=== PATIENT | female | born 1960 | race Caucasian/White ===

== ENCOUNTER 2019-03-18 18:18 | Emergency (ER) | payer BC ==
[2019-03-18] MEDS ORDERED: TETANUS & DIPHTHERIA TOX,ADULT 0.5 ML VIAL ONE (18:46)
[2019-03-18] MEDS ORDERED: LIDOCAINE 1% MPF 5 ML VIAL ONE (18:46)
--- NOTE | 2019-03-18 19:33 | ER ---
Nurse's Notes [facility] Name: Shasha Hickman Age: 58 yrs Sex: Female : 1960 Arrival Date: 03/18/2019 Time: 18:21 Bed 25 Private MD: Diagnosis: Laceration without foreign body of finger without damage to nail-left middle Presentation: 03/18 18:43 Presenting complaint: Patient states: i sustained laceration in my left middle finger mg2 while picking up a can in the trash. approx. 1 inch long. Transition of care: patient was not received from another setting of care. Onset of symptoms was March 18, 2019 at 16:00. Risk Assessment: Do you want to hurt yourself or someone else? Patient reports no desire to harm self or others. Initial Sepsis Screen: Does the patient meet any 2 criteria? No. Patient's initial sepsis screen is negative. Does the patient have a suspected source of infection? No. Patient's initial sepsis screen is negative. Care prior to arrival: None. 18:43 Method Of Arrival: Ambulatory mg2 18:43 Acuity: MARY 4 mg2 Historical: - Allergies: 18:50 No Known Allergies; mg2 - Home Meds: 18:50 None [Active]; mg2 - PMHx: 18:50 None; mg2 - PSHx: 18:50 None; mg2 - Immunization history:: Flu vaccine status is unknown. - Social history:: Smoking status: unknown. - Ebola Screening: : No symptoms or risks identified at this time. Screenin:54 Abuse screen: Denies threats or abuse. Denies injuries from another. Nutritional mg2 screening: No deficits noted. Tuberculosis screening: No symptoms or risk factors identified. Fall Risk None identified. Assessment: 18:53 General: Appears comfortable, Behavior is calm, cooperative. Pain: Complains of pain in mg2 left middle finger. Derm: Wound noted left middle finger. Vital Signs: 18:49 BP 138 / 83; Pulse 75; Resp 18; Temp 98.5; Pulse Ox 100% on R/A; Weight 54.43 kg; mg2 Height 4 ft. 10 in. (147.32 cm); Pain 4/10; 19:45 BP 123 / 78; Pulse 84; Resp 18; Temp 98; Pulse Ox 100% on R/A; mg2 18:49 Body Mass Index 25.08 (54.43 kg, 147.32 cm) mg2 ED Course: 18:21 Patient arrived in ED. mr 18:24 Silvano Ring PA is PHCP. cp 18:24 Kale Duff MD is Attending Physician. cp 18:43 Oren Cordero, RN is Primary Nurse. mg2 18:45 Triage completed. mg2 18:50 Arm band placed on. mg2 18:54 Patient has correct armband on for positive identification. mg2 18:54 Patient did not have IV access during this emergency room visit. mg2 19:43 Assist provider with laceration repair on left middle finger that was 2.5 cm. or less mg2 using sutures. Set up tray. Dressed with Neosporin, Patient tolerated well. done by JUSTIN Santiago under supervision of SHEY Peter. Administered Medications: 18:51 Drug: Tetanus-Diphtheria Toxoid Adult 0.5 ml {Lay Ups Assembler: [employer]. Exp: mg2 10/30/2020. Lot #: [id number]. } Route: IM; Site: right deltoid; 19:45 Follow up: Response: No adverse reaction mg2 18:51 Drug: Lidocaine (1 %) 5 ml {Note: by bthe provider.} Volume: 5 ml; Route: Infiltration; mg2 19:44 Follow up: Response: No adverse reaction mg2 Outcome: 19:32 Discharge ordered by . cp 19:44 Discharged to home ambulatory. mg2 19:44 Condition: stable 19:44 Discharge instructions given to patient, Instructed on discharge instructions, follow up and referral plans. wound care, Demonstrated understanding of instructions, follow-up care, wound care. 19:45 Patient left the ED. mg2 Signatures: Marlin Boston mr Silvano Ring PA PA cp Oren Cordero, RN RN mg2
--- NOTE | 2019-03-18 19:33 | EDPHYS ---
Physician Documentation [facility] Name: Shasha Hickman Age: 58 yrs Sex: Female : 1960 Arrival Date: 03/18/2019 Time: 18:21 Bed 25 Private MD: ED Physician Kale Duff HPI: 03/18 18:43 This 58 yrs old Female presents to ER via Unassigned with complaints of cp Finger laceration. 18:43 The patient or guardian reports a laceration, clean. The complaints affect the distal cp phalanx left middle finger. Context: resulted from sharp edge of metal can. Onset: The symptoms/episode began/occurred just prior to arrival. Associated signs and symptoms: Pertinent negatives: cyanosis distally, decreased sensation distally. Historical: - Allergies: 18:50 No Known Allergies; mg2 - Home Meds: 18:50 None [Active]; mg2 - PMHx: 18:50 None; mg2 - PSHx: 18:50 None; mg2 - Immunization history:: Flu vaccine status is unknown. - Social history:: Smoking status: unknown. - Ebola Screening: : No symptoms or risks identified at this time. ROS: 18:45 Eyes: Negative for injury, pain, redness, and discharge. cp 18:45 Constitutional: Negative for body aches, chills, fever, poor PO intake. 18:45 ENT: Negative for drainage from ear(s), ear pain, sore throat, difficulty swallowing, difficulty handling secretions. 18:45 Cardiovascular: Negative for chest pain. 18:45 Respiratory: Negative for cough. 18:45 Abdomen/GI: Negative for abdominal pain, nausea, vomiting, and diarrhea. 18:45 Skin: Positive for laceration(s), of the distal phalanx left middle finger. 18:45 Neuro: Negative for numbness, tingling. 18:45 All other systems are negative. Exam: 19:00 Constitutional: The patient appears in no acute distress, alert, awake, non-toxic, well cp developed, well nourished. 19:00 Head/Face: Normocephalic, atraumatic. cp 19:00 Skin: injury, laceration(s), the wound is approximately 2 cm(s), of the distal phalanx cp melgar side left middle finger, that can be described as no foreign body, linear, with mild bleeding. 19:00 Musculoskeletal/extremity: ROM: full active range of motion, in the left middle finger, cp Perfusion: the extremity is normally perfused throughout, Sensation intact. Tendon exam: specific tendon testing normal through active and passive range of motion Vital Signs: 18:49 BP 138 / 83; Pulse 75; Resp 18; Temp 98.5; Pulse Ox 100% on R/A; Weight 54.43 kg; mg2 Height 4 ft. 10 in. (147.32 cm); Pain 4/10; 19:45 BP 123 / 78; Pulse 84; Resp 18; Temp 98; Pulse Ox 100% on R/A; mg2 18:49 Body Mass Index 25.08 (54.43 kg, 147.32 cm) mg2 Laceration: 19:28 Wound Repair of 2cm ( 0.8in ) subcutaneous laceration to melgar side distal phalanx cp left middle finger. Linear shaped.. Distal neuro/vascular/tendon intact. Anesthesia: Wound infiltrated with 3 mls of 1% lidocaine. Wound prep: Moderate cleansing by nurse, Wound irrigation by nurse. Skin closed with 5 5-0 Prolene using interrupted sutures and sterile technique. Dressed with Bacitracin, 4x4's. Patient tolerated well. MDM: 18:38 Patient medically screened. cp 19:30 Data reviewed: vital signs, nurses notes, and as a result, I will discharge patient. cp Counseling: I had a detailed discussion with the patient and/or guardian regarding: the historical points, exam findings, and any diagnostic results supporting the discharge/admit diagnosis, to return to the emergency department if symptoms worsen or persist or if there are any questions or concerns that arise at home. Response to treatment: the patient's symptoms have markedly improved after treatment, and as a result, I will discharge patient. Administered Medications: 18:51 Drug: Tetanus-Diphtheria Toxoid Adult 0.5 ml {Mat Puncher: [employer]. Exp: mg2 10/30/2020. Lot #: [id number]. } Route: IM; Site: right deltoid; 19:45 Follow up: Response: No adverse reaction mg2 18:51 Drug: Lidocaine (1 %) 5 ml {Note: by bthe provider.} Volume: 5 ml; Route: Infiltration; mg2 19:44 Follow up: Response: No adverse reaction mg2 Disposition: 03/18/19 19:32 Discharged to Home. Impression: Laceration without foreign body of finger without damage to nail - left middle. - Condition is Stable. - Discharge Instructions: Laceration Care, Adult. - Medication Reconciliation Form, Thank You Letter, Antibiotic Education, Prescription Opioid Use form. - Follow up: Private Physician; When: 7 - 10 days; Reason: Staple/Suture removal. - Problem is new. - Symptoms have improved. Signatures: Silvano Ring PA PA cp Oren Cordero RN RN mg2 Corrections: (The following items were deleted from the chart) 19:45 19:32 03/18/2019 19:32 Discharged to Home. Impression: Laceration without foreign body mg2 of finger without damage to nail - left middle. Condition is Stable. Forms are Medication Reconciliation Form, Thank You Letter, Antibiotic Education, Prescription Opioid Use. Follow up: Private Physician; When: 7 - 10 days; Reason: Staple/Suture removal. Problem is new. Symptoms have improved. cp
== END 2019-03-18 19:45 | disposition home or self-care (01) ==
LOC: ER 18:18
PROC: 0JQJ0ZZ Repair Right Hand Subcutaneous Tissue and Fascia, Open Approach (ICD-10-PCS; principal; 2019-03-18)
DX: S61.213A Laceration without foreign body of left middle finger without damage to nail, initial encounter (principal); W26.8XXA Contact with other sharp object(s), not elsewhere classified, initial encounter; Y93.9 Activity, unspecified; Y92.9 Unspecified place or not applicable; Z23 Encounter for immunization
CPT/HCPCS: 90471; 90714; 99283

== ENCOUNTER 2021-12-14 07:34 | Emergency (ER) | payer BC ==
--- OUTSIDE RECORDS SUMMARY | 2021-12-14 07:36 | XMS REPORT | Continuity of Care Document ---
:1960 Author Organization [facility] Address [address] [place] [address] Dr. Maldonado [address] [place] [id number] Care Team Providers Name Role Phone GLORIA_Chio Attending Clinician Unavailable Lyle Marinelli Attending Clinician [phone] GLORIA_Chio Admitting Clinician Unavailable Payers Payer Name Policy Type Policy Number Effective Date Expiration Date S ource Problems This patient has no known problems. Allergies, Adverse Reactions, Alerts This patient has no known allergies or adverse reactions. Medications This patient has no known medications. Procedures This patient has no known procedures. Encounters Start End Encounter Admission Attending Care Care Encounter Source Date/Time Date/Time Type Type Clinicians Facility Department ID 2021-09-02 2021-09-02 Outpatient ERICKSON_R [facility] [id number] - [place] 07:32:00 07:32:00 [facility] 2021-07-29 2021-07-29 Outpatient ERICKSON_[facility] [id number] [place] 04:34:00 04:34:00 [facility] 2021-06-24 2021-06-24 Outpatient ERICKSON_R [facility] [id number] [place] 05:22:00 05:22:00 [facility] 2021-05-25 2021-05-25 Outpatient ERICKSON_R [facility] [id number] [place] 02:25:00 02:25:00 [facility] 2021-05-20 2021-05-20 Outpatient ERICKSON_R [facility] [id number] [place] 03:33:00 03:33:00 030 [facility] 2021-05-16 2021-05-16 Outpatient ERICKSON_R [facility] [id number] [place] 03:37:00 03:37:00 026 [facility] 2021-05-16 2021-05-16 Outpatient Gloria [facility] [id number] 00:00:00 00:00:00 Oswaldo [id number] Lyle [id number] 2021-05-16 2021-05-16 Outpatient Marinelli, [facility] [id number] 00:00:00 00:00:00 Oswaldo [id number] Lyle [id number] 2021-04-25 2021-04-25 Outpatient GLORIA_R [facility] [id number] - [place] 12:15:00 12:15:00 [facility] 2021-04-25 2021-04-25 Outpatient Marinelli, [facility] [id number] 00:00:00 00:00:00 Oswaldo [id number] Lyle [id number] Results This patient has no known results.
[2021-12-14 08:24] LABS: Urine Blood Negative (Negative); Urine Glucose Trace (Negative); Urine Protein 2+ (Negative); Urine Specific Gravity 1.015 (1.005-1.030)
[2021-12-14 08:26] LABS: Absolute Lymphocytes (CBC) 1.3 K/uL (0.7-4.9); Lymphocytes % 20.2 % (15.3-44.8); MPV 7.4 fL (7.6-11.3); RBC Red Blood Cell Count 4.81 M/uL (3.86-4.86)
[2021-12-14 08:36] LABS: Protime INR 0.97
--- NOTE | 2021-12-14 08:44 | RAD REPORT ---
EXAM DESCRIPTION: CT - Stone Protocol - 12/14/2021 8:30 am CLINICAL HISTORY: Flank pain. Flank pain, kidney stone suspected COMPARISON: No comparisons TECHNIQUE: Axial images were obtained without oral or IV contrast. Lack of contrast limits solid org an and vascular assessment. The [id number] spans the entirety of the system partially obscuring uppermost abdomen and lung bases. Coronal reformatted images were obtained and reviewed. All CT scans are performed using dose optimization technique as appropriate and may include automated exposure control or mA/KV adjustment according to patient size. FINDINGS: The lower lung quintero are clear. Imaged portions of the liver and spleen show no suspicious findings on non-contrast imaging. The panc reas and adrenal glands are normal. No pathologic lymphadenopathy in the abdomen or pelvis. No urinary tract stones or obstructive uropathy. No bowel obstruction, free air, free fluid or abscess. Normal appendix noted.Scattered colonic divert iculosis. Small fat containing umbilical hernia. All Bilateral spondylolysis with mild anterolisthesis at L5-S1. IMPRESSION: No urinary tract stones or obstructive uropathy.
[2021-12-14] MEDS ORDERED: MORPHINE 2 MG/ML SYR ONE (08:47)
[2021-12-14] MEDS ORDERED: NA CHLORIDE 0.9% 100 ML ONE (08:47)
[2021-12-14] MEDS ORDERED: Meropenem 1000 MG/VIAL IV ONE (08:47)
[2021-12-14] MEDS ORDERED: ONDANSETRON 4 MG/2 ML VIAL ONE (08:47)
[2021-12-14] MEDS ORDERED: NA CHLORIDE 0.9% 1,000 ML ONE (08:47)
[2021-12-14 08:49] LABS: Urine Bacteria <20 /HPF (<20); Urine RBC NONE SEEN /HPF (NONE SEEN)
--- NOTE | 2021-12-14 08:50 | RAD REPORT ---
EXAM DESCRIPTION: RAD - Chest Single View - 12/14/2021 8:30 am CLINICAL HISTORY: COUGH Chest pain. COMPARISON: No comparisons FINDINGS: Portable technique limits examination quality. The lungs are grossly clear. The heart is normal in size. No displaced fractures. IMPRESSION: No acute intrathoracic process suspected.
[2021-12-14 09:03] LABS: Albumin 4.1 g/dL (3.4-5.0); Bilirubin Direct 0.2 mg/dL (0-0.2); Bilirubin Total 0.8 mg/dL (0.2-1.0); Potassium 3.9 mmol/L (3.5-5.1); Protein, Total 7.4 g/dL (6.4-8.2)
--- NOTE | 2021-12-14 10:03 | ER ---
Nurse's Notes [facility] Name: Shasha Hickman Age: 61 yrs Sex: Female : 1960 Arrival Date: 12/14/2021 Time: 07:35 Bed 16 Private MD: Diagnosis: UTI/ Urinary tract infection, site not specified;Syncope Near Presentation: 12/14 07:43 Chief complaint: Spouse and/or significant other states: UTI X 2-3 weeks, has been on iw Bactrim, now is on cephalexin , she feels like she wants to faint, is having pain to her vaginal area, is unsure if it's a reaction to the antibiotics, denies pain with urination. Coronavirus screen: At this time, the client does not indicate any symptoms associated with coronavirus-19. Ebola Screen: Patient negative for fever greater than or equal to 101.5 degrees Fahrenheit, and additional compatible Ebola Virus Disease symptoms Patient denies exposure to infectious person. Patient denies travel to an Ebola-affected area in the 21 days before illness onset. No symptoms or risks identified at this time. Initial Sepsis Screen: Does the patient meet any 2 criteria? No. Patient's initial sepsis screen is negative. Does the patient have a suspected source of infection? No. Patient's initial sepsis screen is negative. Risk Assessment: Do you want to hurt yourself or someone else? Patient reports no desire to harm self or others. Onset of symptoms was November 28, 2021. 07:43 Method Of Arrival: Ambulatory iw 07:43 Acuity: MARY 3 iw Historical: - Allergies: 07:46 Marcaine; iw - Home Meds: 07:46 None [Active]; iw - PMHx: 07:46 None; iw - PSHx: 07:46 None; iw - Immunization history:: Client reports receiving the 2nd dose of the Covid vaccine. - Social history:: Smoking status: Patient denies any tobacco usage or history of. - Family history:: not pertinent. Screenin:16 Abuse screen: Denies threats or abuse. Nutritional screening: No deficits noted. ll1 Tuberculosis screening: No symptoms or risk factors identified. Fall Risk IV access (20 points). Total Jeffries Fall Scale indicates No Risk (0-24 pts). Assessment: 08:40 General: Appears uncomfortable, ill, Behavior is calm, cooperative, appropriate for ll1 age. Pain: Complains of pain in pelvic area Pain currently is 5 out of 10 on a pain scale. Quality of pain is described as aching, Pain began 1 day ago. Neuro: No deficits noted. Cardiovascular: No deficits noted. Respiratory: No deficits noted. GI: Reports lower abdominal pain, cramping. : Reports cramping, pain in suprapubic area urgency, urinary frequency. 09:00 Reassessment: No changes from previously documented assessment. Patient and/or family ll1 updated on plan of care and expected duration. Pain level reassessed. Patient is alert, oriented x 3, equal unlabored respirations, skin warm/dry/pink. Vital Signs: 07:43 BP 145 / 74; Pulse 65; Resp 16; Temp 98.1; Pulse Ox 95% on R/A; Weight 54.43 kg; Height iw 4 ft. 11 in. (149.86 cm); Pain 5/10; 09:21 BP 147 / 76; Pulse 53; Resp 16; Pain 0/10; ll1 07:43 Body Mass Index 24.24 (54.43 kg, 149.86 cm) iw ED Course: 07:35 Patient arrived in ED. rg4 07:46 Triage completed. iw 07:46 Arm band placed on. iw 07:50 Silvano Hill MD is Attending Physician. lc 08:31 CT Stone Protocol In Process Unspecified. EDMS 08:32 XRAY Chest (1 view) In Process Unspecified. EDMS 08:32 January Trivedi, DHARMESH is Primary Nurse. ll1 08:40 Inserted saline lock: 22 gauge in left antecubital area, using aseptic technique. Blood ll1 collected. 09:17 Patient has correct armband on for positive identification. Bed in low position. Call ll1 light in reach. Side rails up X 1. Pulse ox on. NIBP on. 10:02 Bebo Castillo MD is Hospitalizing Provider. lc 10:02 Aleksandr Castillo MD is Hospitalizing Provider. lc 10:25 Ethan Fitzgerald MD is Referral Physician. lc 10:34 No provider procedures requiring assistance completed. ap3 10:43 IV discontinued, intact, bleeding controlled, No redness/swelling at site. Pressure ap3 dressing applied. Administered Medications: 08:50 Drug: Zofran (Ondansetron) 4 mg Route: IVP; Site: left antecubital; ll1 09:21 Follow up: Response: No adverse reaction ll1 08:52 Drug: morphine 2 mg {Note: rass 0, pain 5/10.} Route: IV; Rate: calculated rate; Site: ll1 left antecubital; 09:21 Follow up: Response: No adverse reaction; Pain is decreased; RASS: Alert and Calm (0); ll1 IV Status: Completed infusion; IV Intake: 1ml 10:34 Follow up: IV Status: Completed infusion ap3 08:54 Drug: NS 0.9% 1000 ml Route: IV; Rate: 1 bolus; Site: left antecubital; ll1 10:35 Follow up: IV Status: Completed infusion ap3 08:54 Drug: Meropenem 1 grams Route: IV; Rate: per protocol; Site: left antecubital; ll1 10:35 Follow up: IV Status: Completed infusion ap3 10:42 Drug: LevOfloxacin 750 mg Route: PO; ap3 10:43 Follow up: Response: No adverse reaction ap3 Medication: 09:17 VIS not applicable for this client. ll1 Intake: 09:21 IV: 1ml; Total: 1ml. ll1 Outcome: 10:03 Decision to Hospitalize by Provider. lc 10:27 Discharge ordered by . lc 10:43 Discharged to home ambulatory, with family. ap3 10:43 Condition: good 10:43 Discharge instructions given to patient, family, Instructed on discharge instructions, follow up and referral plans. medication usage, Demonstrated understanding of instructions, follow-up care, medications, Prescriptions given X 2. 10:43 Patient left the ED. ap3 Signatures: Dispatcher [employer] EDWI Silvano Hill MD MD cha Williams, Irene, RN Cely Granados4 Zoë Alvarenga RN RN ap3 January Trivedi RN RN ll1
--- NOTE | 2021-12-14 10:03 | EDPHYS ---
Physician Documentation [facility] Name: Shasha Hickman Age: 61 yrs Sex: Female : 1960 Arrival Date: 12/14/2021 Time: 07:35 Bed 16 Private MD: [email or web address] Physician Silvano Hill HPI: 12/14 09:55 This 61 yrs old Female presents to ER via Ambulatory with complaints of lc Urinary Problem. 09:55 The patient presents with urinary symptoms, dysuria, frequency, urgency. Onset: The lc symptoms/episode began/occurred 3 week(s) ago. Modifying factors: The symptoms are alleviated by nothing, the symptoms are aggravated by nothing. Associated signs and symptoms: Pertinent positives: syncope. Severity of symptoms: At their worst the symptoms were mild, moderate, in the emergency department the symptoms are unchanged. The patient has experienced syncope, lost consciousness. Onset: The symptoms/episode began/occurred this morning. Duration: This was a single episode, that lasted 20 second(s). The patient is sexually active, reportedly has a single partner. Historical: - Allergies: 07:46 Marcaine; iw - Home Meds: 07:46 None [Active]; iw - PMHx: 07:46 None; iw - PSHx: 07:46 None; iw - Immunization history:: Client reports receiving the 2nd dose of the Covid vaccine. - Social history:: Smoking status: Patient denies any tobacco usage or history of. - Family history:: not pertinent. ROS: 09:55 Constitutional: Negative for fever, chills, and weight loss, Eyes: Negative for injury, lc pain, redness, and discharge, ENT: Negative for injury, pain, and discharge, Neck: Negative for injury, pain, and swelling, Cardiovascular: Negative for chest pain, palpitations, and edema, Respiratory: Negative for shortness of breath, cough, wheezing, and pleuritic chest pain, Abdomen/GI: Negative for abdominal pain, nausea, vomiting, diarrhea, and constipation, Back: Negative for injury and pain, MS/Extremity: Negative for injury and deformity, Skin: Negative for injury, rash, and discoloration, Psych: Negative for depression, anxiety, suicide ideation, homicidal ideation, and hallucinations, Allergy/Immunology: Negative for hives, rash, and allergies, Endocrine: Negative for neck swelling, polydipsia, polyuria, polyphagia, and marked weight changes, Hematologic/Lymphatic: Negative for swollen nodes, abnormal bleeding, and unusual bruising. 09:55 : Positive for urinary frequency, burning with urination. Exam: :55 Constitutional: This is a well developed, well nourished patient who is awake, alert, lc and in no acute distress. Head/Face: Normocephalic, atraumatic. Eyes: Pupils equal round and reactive to light, extra-ocular motions intact. Lids and lashes normal. Conjunctiva and sclera are non-icteric and not injected. Cornea within normal limits. Periorbital areas with no swelling, redness, or edema. ENT: Nares patent. No nasal discharge, no septal abnormalities noted. Tympanic membranes are normal and external auditory canals are clear. Oropharynx with no redness, swelling, or masses, exudates, or evidence of obstruction, uvula midline. Mucous membranes moist. Neck: Trachea midline, no thyromegaly or masses palpated, and no cervical lymphadenopathy. Supple, full range of motion without nuchal rigidity, or vertebral point tenderness. No Meningismus. Chest/axilla: Normal chest wall appearance and motion. Nontender with no deformity. No lesions are appreciated. Cardiovascular: Regular rate and rhythm with a normal S1 and S2. No gallops, murmurs, or rubs. Normal PMI, no JVD. No pulse deficits. Respiratory: Lungs have equal breath sounds bilaterally, clear to auscultation and percussion. No rales, rhonchi or wheezes noted. No increased work of breathing, no retractions or nasal flaring. Abdomen/GI: Soft, non-tender, with normal bowel sounds. No distension or tympany. No guarding or rebound. No evidence of tenderness throughout. Back: No spinal tenderness. No costovertebral tenderness. Full range of motion. Female : Normal external genitalia. Skin: Warm, dry with normal turgor. Normal color with no rashes, no lesions, and no evidence of cellulitis. MS/ Extremity: Pulses equal, no cyanosis. Neurovascular intact. Full, normal range of motion. Psych: Awake, alert, with orientation to person, place and time. Behavior, mood, and affect are within normal limits. :55 ECG was reviewed by the Attending Physician. 09:55 Neuro: Orientation: is normal, appropriate for stated age, no acute changes, Mentation: is normal, appropriate for stated age, no acute changes, Memory: is normal, appropriate for stated age, no acute changes, Cranial nerves: grossly normal, is grossly normal based on the patient's age, no acute changes, Motor: is normal, moves all fours, Sensation: is normal, no obvious gross deficits, appropriate Gait: not tested. seizure activity, is not displayed by the patient. Vital Signs: 07:43 BP 145 / 74; Pulse 65; Resp 16; Temp 98.1; Pulse Ox 95% on R/A; Weight 54.43 kg; Height iw 4 ft. 11 in. (149.86 cm); Pain 5/10; 09:21 BP 147 / 76; Pulse 53; Resp 16; Pain 0/10; ll1 07:43 Body Mass Index 24.24 (54.43 kg, 149.86 cm) iw MDM: 07:50 Patient medically screened. lc 10:07 Differential diagnosis: kidney stone, nonspecific abdominal pain, urinary tract lc infection. Differential Diagnosis: cardiac arrhythmia, emotional response, idiopathic syncope, , sepsis, vasovagal episode. Data reviewed: EKG. Data interpreted: engine monitor: rate is 53 beats/min, rhythm is regular, Pulse oximetry: on room air is 95 %. Test interpretation: by ED physician or midlevel provider: ECG. Test interpretation: by ED physician or midlevel provider: plain radiologic studies. Counseling: I had a detailed discussion with the patient and/or guardian regarding: the historical points, exam findings, and any diagnostic results supporting the discharge/admit diagnosis, lab results, radiology results. 12/14 07:53 Order name: Basic Metabolic Panel; Complete Time: 09:38 12/14 07:53 Order name: CBC with Diff; Complete Time: 09:38 12/14 07:53 Order name: LFT's; Complete Time: 09:38 12/14 07:53 Order name: Magnesium; Complete Time: 09:38 12/14 07:53 Order name: NT PRO-BNP; Complete Time: 09:38 12/14 07:53 Order name: PT-INR; Complete Time: 09:38 12/14 07:53 Order name: Troponin HS; Complete Time: 09:38 12/14 07:53 Order name: XRAY Chest (1 view); Complete Time: 09:38 lc 12/14 07:53 Order name: CT Stone Protocol; Complete Time: 09:38 lc 12/14 07:53 Order name: SARS-COV-2 RT PCR (Document "Date of Onset" if Symptomatic); Complete Time: lc 10:21 12/14 08:24 Order name: Urine Microscopic Only; Complete Time: 09:38 iw 12/14 08:24 Order name: Urine Culture iw 12/14 08:25 Order name: Urine Dipstick-Ancillary; Complete Time: 09:38 EDMS 12/14 07:53 Order name: EKG; Complete Time: 07:54 [facility] 12/14 07:53 Order name: Cardiac monitoring; Complete Time: 08:58 [facility] 12/14 07:53 Order name: EKG - Nurse/Tech; Complete Time: 08:58 [facility] 12/14 07:53 Order name: IV Saline Lock; Complete Time: 08:19 [facility] 12/14 07:53 Order name: Labs collected and sent; Complete Time: 08:19 [facility] 12/14 07:53 Order name: O2 Per Protocol; Complete Time: 08:33 [facility] 12/14 07:53 Order name: O2 Sat Monitoring; Complete Time: 08:33 lc EC:55 Rate is 58 beats/min. Rhythm is regular. QRS [place] is Normal. NE interval is normal. QRS lc interval is normal. QT interval is normal. No Q waves. T waves are Normal. No ST changes noted. Clinical impression: Sinus bradycardia and No evidence of ischemia. Interpreted by me. Reviewed by me. Administered Medications: 08:50 Drug: Zofran (Ondansetron) 4 mg Route: IVP; Site: left antecubital; ll1 09:21 Follow up: Response: No adverse reaction ll1 08:52 Drug: morphine 2 mg {Note: rass 0, pain 5/10.} Route: IV; Rate: calculated rate; Site: ll1 left antecubital; 09:21 Follow up: Response: No adverse reaction; Pain is decreased; RASS: Alert and Calm (0); ll1 IV Status: Completed infusion; IV Intake: 1ml 10:34 Follow up: IV Status: Completed infusion ap3 08:54 Drug: NS 0.9% 1000 ml Route: IV; Rate: 1 bolus; Site: left antecubital; ll1 10:35 Follow up: IV Status: Completed infusion ap3 08:54 Drug: Meropenem 1 grams Route: IV; Rate: per protocol; Site: left antecubital; ll1 10:35 Follow up: IV Status: Completed infusion ap3 10:42 Drug: LevOfloxacin 750 mg Route: PO; ap3 10:43 Follow up: Response: No adverse reaction ap3 Disposition Summary: 12/14/21 10:27 Discharge Ordered Location: Home(12/14/21 10:27) lc Problem: new(12/14/21 10:27) lc Symptoms: have improved(12/14/21 10:27) lc Condition: Stable(12/14/21 10:) lc Diagnosis - UTI/ Urinary tract infection, site not specified(12/14/21 10:27) lc - Syncope Near(12/14/21 10:) lc Followup: lc - With: Private Physician - When: 2 - 3 days - Reason: Recheck today's complaints, Continuance of care, Re-evaluation by your physician Followup: lc - With: Ethan Fitzgerald MD - When: 2 - 3 days - Reason: Recheck today's complaints, Continuance of care, Re-evaluation by your physician Discharge Instructions: - Discharge Summary Sheet lc - Dysuria lc - Near-Syncope lc - Syncope lc - Urinary Tract Infection, Adult lc - Weakness lc - Urinary Tract Infection, Adult, [id number] lc - Near-Syncope, [id number] lc - Syncope, [id number] lc - Weakness, [id number] lc Forms: - Medication Reconciliation Form lc - Thank You Letter lc - Antibiotic Education lc - Prescription Opioid Use lc Prescriptions: - levofloxacin 500 mg Oral Tablet - take 1 tablet by ORAL route once daily for 10 days; 10 tablet; Refills: 0, lc Product Selection Permitted - Pyridium 200 mg Oral Tablet - take 1 tablet by ORAL route every 8 hours for 3 days; 9 tablet; Refills: 0, lc Product Selection Permitted Signatures: Dispatcher [employer] Silvano Roth MD MD cha Williams, Irene, RN RN iw Prokisch, Amanda, RN RN ap3 January Trivedi RN RN ll1 Corrections: (The following items were deleted from the chart) 10: 10:03 Observation lc lc 10: 10:03 Aleksandr Castillo [facility] 10:03 Telemetry/MedSurg (observation) [facility] 10:03 Fair [facility] 10:03 new [facility] 10:03 have improved [facility] 10:03 Standard [facility] 10:03 [facility] 10:03 UTI/ Urinary tract infection, site not specified - failed out patient treatment [facility] 10:03 Syncope Near [facility]
[2021-12-14] MEDS ORDERED: levoFLOXacin 750 MG TAB ONE (10:33)
[2021-12-14 11:28] VITALS: TEMP 98.1; O2SAT 95
[2021-12-14 11:29] VITALS: BP 147/76
--- NOTE | 2021-12-15 18:00 | EKG ---
Test Date: 2021-12-14 Test Time: 08:52:36 [employer] Room Attendant: ALP MEASUREMENT RESULTS: Intervals: Rate: 58 OK: 108 QRSD: 82 QT: 412 QTc: 404 [place]: P: 42 OK: 108 QRS: 61 T: 77 INTERPRETIVE STATEMENTS: Sinus bradycardia with short OK Otherwise normal ECG No previous ECG available for comparison Electronically Signed On 12-15-21 17:58:28 CDT by Linden Aguilar
== END 2021-12-14 10:43 | disposition home or self-care (01) ==
LOC: ER 07:34
DX: N39.0 Urinary tract infection, site not specified (principal); R55 Syncope and collapse; Z88.4 Allergy status to anesthetic agent; Z20.822 Contact with and (suspected) exposure to COVID-19
CPT/HCPCS: 96365; 93005; 87088; 85025; 87086; 80048; 36415; 83735; 85610; 80076; 84484; 83880; 76377; 74176; 71045; 96375; 99284; U0003; J2270; J2185; J7030; J2405; 81003; 81015